=== PATIENT | female | born 1965 | race Caucasian/White ===

== ENCOUNTER → 2016-10-29 | Outpatient (CLI) | payer OTHER ==
--- NOTE | ~2016-10-29 | TH ---
Unit #: [id number] #: [id number] Patient: EDISON QUIGLEY [id number] [address] [address] [id number] O MR#: [id number] NAME: EDISON QUIGLEY : 1965 SEX: F STUDY DATE/TIME: 10/29/2016 UNIT: [facility] ROOM: STUDY DESCRIPTION: NUCLEAR STUDY Attending Physician: Jamil Lin M.D. Referring Physician: Jamil Lin M.D. Primary Care Physician: [facility] CARDIOLOGY REPORT EXAM Stress nuclear and ECG combined. INDICATION Inability to exercise adequately, chest discomfort, dyspnea, reduced ejection fraction for the determination of ischemia as contributor to the patient's symptoms. SUMMARY The patient walked slowly on the treadmill with a Lexiscan injection. Technetium-99m Cardiolite 11.21 and 35.2 mCi was injected at rest and stress respectively. Patient walked at 1.5 miles per hour, zero percent grade. Appropriate views were obtained. FINDINGS The rest ECG and the stress ECG showed no diagnostic ST shifts. The patient did not develop any angina. The heart rate increased from 83 to 129. Blood pressure decreased 127/76 to 120/70. Planar images demonstrated no significant patient motion either at rest or stress. There was no significant lung uptake, LV or RV enlargement. There is breast attenuation artifact present. Summed stress scores is 0. Gated perfusion wall motion analysis demonstrates normal wall motion throughout the myocardium with end-diastolic volume 46 mL, ejection fraction greater than 65%. Perfusion images demonstrate chest wall and breast attenuation artifact, both at rest and stress. Otherwise, perfusion is normal and equivalent between rest and stress. IMPRESSION 1. Normal wall motion. 2. Normal LV size. 3. Normal LV function. 4. No ischemia or infarction. 5. Normal study. 6. Normal stress ECG with appropriate heart rate and blood pressure responses. 7. No change in therapy based on this study. Unit #: [id number] #: [id number] Patient: EDISON UQIGLEY Dictated by... Jamil Lin M.D. LINDA/jayshree TD: 10/29/2016 16:59 JOB #: [id number] CARDIOLOGY REPORT Page 1 of 1 X Jamil Lin MD CARDIOLOGY REPORT
[2016-10-29 09:44] LABS: THYROID STIMULATING HORMONE 2.4 uIU/ml (0.34-5.60)
[2016-10-29 09:51] LABS: FREE THYROXIN (T4) 0.89 ng/dL (0.58-1.64)
== END | disposition home or self-care (01) ==
LOC: CLAB 07:42
DX: R06.02 Shortness of breath (principal); E66.01 Morbid (severe) obesity due to excess calories
CPT/HCPCS: 36415; 78452; 84439; 84443; 93017; A9500; J2785